=== PATIENT | female | born 1955 | race Caucasian/White ===

== ENCOUNTER → 2020-04-27 | Outpatient (CLI) | payer OTHER ==
--- NOTE | 2020-04-27 13:45 | XR ---
Lumbosacral spine HISTORY: Low back pain 5 views lumbosacral spine There is a levoscoliosis centered at L1. Bone mineralization is reduced. Sclerotic focus is present a t the right ilium posteriorly. Lumbar vertebral bodies show no spondylolysis. Anterolisthesis grade 1 L4-5. Retrolisthesis grade 1 L 2-3. Sclerosis present in the posterior elements. Loss of disc height is present intervertebral level s. There is multilevel vacuum phenomenon. IMPRESSION: Degenerative disc disease, facet arthropathy, osteopenia. Spinal curvature. Indeterminate sclerotic focus within the right ilium. Consider bone scan as indicated.
== END | disposition home or self-care (01) ==
LOC: RADXRMAIN 11:55
PROVIDERS: ATTEND Family Medicine
DX: M51.37 Other intervertebral disc degeneration, lumbosacral region (principal); M47.817 Spondylosis without myelopathy or radiculopathy, lumbosacral region; M43.8X7 Other specified deforming dorsopathies, lumbosacral region; M85.88 Other specified disorders of bone density and structure, other site; E11.9 Type 2 diabetes mellitus without complications
CPT/HCPCS: 72110